=== PATIENT | female | born 1990 | race Caucasian/White ===

== ENCOUNTER 2017-09-15 17:03 | Emergency (ER) | payer MEDICAID, OTHER ==
[~2017-09-15] VITALS: Ht 149.9 cm; Wt 81.2 kg
[2017-09-15 17:10] VITALS: BP 149/94
[2017-09-15] MEDS ORDERED: KETOROLAC 30 MG/ML VIAL IM ONE (17:30)
[2017-09-15 18:05] VITALS: BP 143/86
== END 2017-09-15 18:05 | disposition home or self-care (01) ==
LOC: MED 17:03
DX: S63.502A Unspecified sprain of left wrist, initial encounter (principal); S29.011A Strain of muscle and tendon of front wall of thorax, initial encounter; X50.0XXA Overexertion from strenuous movement or load, initial encounter; Y93.89 Activity, other specified; Y92.89 Other specified places as the place of occurrence of the external cause; Y99.8 Other external cause status
CPT/HCPCS: 29125; 71045; 81002; 81025; 93005; 96372; 99284; J1885; 99283